=== PATIENT | female | born 1985 | race Caucasian/White ===

== ENCOUNTER 2020-10-13 | Inpatient (IN) | payer BC ==
[~2020-10-13] VITALS: Ht 175.3 cm; Wt 115.2 kg
[2020-10-13] MEDS ORDERED: VITAFOL-OB+DHA1 EACH PO (00:52)
--- NOTE | 2020-10-13 00:54 | NUR ---
SWABBED BOTH NARES FOR RAPID COVID TEST
--- NOTE | 2020-10-13 13:33 | PR ---
[facility] [address] [place], [place] [address] Signed Progress Notes IP Datetime Report Generated by CPN: 10/13/2020 13:33 PROGRESS NOTES: [id number] Impression: Normal Progression of Labor; Reassuring Heart Rate Procedures: Artificial ROM; Sterile Vag Exam Plan: Continue Present Management; Anticipate Vaginal Delivery Other Plans: Start PCN Informed Consent Obtain: Vaginal Delivery VITAL SIGNS: [id number] Vital Signs: Reviewed; Within Normal Limits EXAM: [id number] Dilatation: 3.0 Effacement: 50 Station: -3 Contractions: Rare MEMBRANES: [id number] Comments: Pt seen and examined. Doing well. More uncomfortable w/ contractions. Cx ripe and discussed AROM. AROM performed w/out difficulty. Start PCN prophylaxis. Discussed anticipated course of labor. Epidural on demand. All questions answered. FETUS A: [id number] FHR Baseline: 130 Variability: Moderate 6-25bpm Accelerations: 15X15 Decelerations: None FHR Category: Category I Presentation: Vertex Comments on Fetus A: No evidence of metabolic acidosis FETUS B: [id number] Signing Physician: Angella Pickard DO Copies: ~ *Electronically Signed* 10/13/20 1333 ANGELLA PICKARD DO PATIENT NAME: CANDI SCHAEFER PROGRESS NOTE DATE OF : 83 PHYSICIAN: ANGELLA PICKARD DO RPT #: [id number] REPORT IS CONFIDENTIAL AND NOT TO BE RELEASED WITHOUT AUTHORIZATION
--- NOTE | 2020-10-13 17:36 | PR ---
[facility] [address] [place], [place] [address] Signed Progress Notes IP Datetime Report Generated by CPN: 10/13/2020 17:36 PROGRESS NOTES: [id number] Impression: Reassuring Heart Rate Procedures: Intrauterine Pressure Catheter; Sterile Vag Exam Plan: Augmentation Other Plans: Start PCN Informed Consent Obtain: Vaginal Delivery VITAL SIGNS: [id number] Vital Signs: Reviewed; Within Normal Limits EXAM: [id number] Dilatation: 4.0 Effacement: 50 Station: -3 Contractions: Rare MEMBRANES: [id number] Comments: Pt seen and examined. Contractions very uncomfortable at times. No pelvic pressure. On exam, limited cervical change since AROM. IUPC placed and will start pitocin per protocol. Discussed w/ pt who understands and agrees. All questions answered. FETUS A: [id number] FHR Baseline: 130 Variability: Moderate 6-25bpm Accelerations: 15X15 Decelerations: None FHR Category: Category I Presentation: Vertex Comments on Fetus A: No evidence of metabolic acidosis FETUS B: [id number] Signing Physician: Angella Pickard DO Copies: ~ *Electronically Signed* 10/13/20 7730 ANGELLA PICKARD DO PATIENT NAME: CANDI SCHAEFER PROGRESS NOTE DATE OF : 83 PHYSICIAN: ANGELLA PICKARD DO RPT #: [id number] REPORT IS CONFIDENTIAL AND NOT TO BE RELEASED WITHOUT AUTHORIZATION
--- NOTE | 2020-10-13 19:52 | PR ---
[facility] [address] [facility] [place] [facility] [place], [place] [address] Signed Progress Notes IP Datetime Report Generated by CPN: 10/13/2020 19:52 PROGRESS NOTES: [id number] Impression: Normal Progression of Labor; Reassuring Heart Rate Procedures: Intrauterine Pressure Catheter; Sterile Vag Exam Plan: Continue Present Management Other Plans: Start PCN Informed Consent Obtain: Vaginal Delivery VITAL SIGNS: [id number] Vital Signs: Reviewed; Within Normal Limits EXAM: [id number] Dilatation: 4.0 Effacement: 50 Station: -3 Contractions: Rare MEMBRANES: [id number] Comments: Pt seen and examined. Comfortable w/ epidural. Pitocin per protocol and contractions becoming more regular. Discussed anticipated course of labor. All questions answered. FETUS A: [id number] FHR Baseline: 130 Variability: Moderate 6-25bpm Accelerations: 15X15 Decelerations: None FHR Category: Category I Presentation: Vertex Comments on Fetus A: No evidence of metabolic acidosis FETUS B: [id number] Signing Physician: Angella Pickard DO Copies: ~ *Electronically Signed* 10/13/201951 ANGELLA PICKARD DO PATIENT NAME: CANDI SCHAEFER PROGRESS NOTE DATE OF : 83 PHYSICIAN: ANGELLA PICKARD DO RPT #: [id number] REPORT IS CONFIDENTIAL AND NOT TO BE RELEASED WITHOUT AUTHORIZATION
--- NOTE | 2020-10-14 08:48 | PR ---
[facility] [address] [facility] [place], [place] [address] Signed PP Progress Notes Datetime Report Generated by CPN: 10/14/2020 08:48 SUBJECTIVE: [id number] Pain: Within Normal Limits Nausea/Vomiting: Denies Flatus: Yes Bowel Movement: No Vital Signs: [id number] Vital Signs: Reviewed; Within Normal Limits Cardiovascular: Normal Respiratory: Normal Abdomen/Uterus: Normal Lochia: Normal Vulva/Perineum: Not Done Breasts: Not Done CVA Tenderness: Normal Extremities: Normal Incision: Not Applicable Progress: Normal Exam Comments: Fundus firm U-2 nontender IMPRESSION/PLAN/PROCEDURES: [id number] Impression: Normal Progression Plan: Continue Present Management Progress Notes: Pt seen and examined. Doing well. Ambulating, voiding, and tolerating full diet. Pain and lochia minimal. well. No concerns. Anticipate d/c home tomorrow. All questions answered Signing Physician: Angella Pickard DO Copies: ~ *Electronically Signed* 10/14/20 0848 ANGELLA PICKARD DO PATIENT NAME: CANDI SCHAEFER PROGRESS NOTE DATE OF : 83 PHYSICIAN: ANGELLA PICKARD DO RPT #: [id number] REPORT IS CONFIDENTIAL AND NOT TO BE RELEASED WITHOUT AUTHORIZATION
--- NOTE | 2020-10-15 07:48 | PR ---
[facility] [address] [place], [place] [address] Signed PP Progress Notes Datetime Report Generated by CPN: 10/15/2020 07:48 SUBJECTIVE: [id number] Pain: Within Normal Limits Nausea/Vomiting: Denies Flatus: Yes Bowel Movement: No Vital Signs: [id number] Vital Signs: Reviewed; Within Normal Limits Cardiovascular: Normal Respiratory: Normal Abdomen/Uterus: Normal Lochia: Normal Vulva/Perineum: Not Done Breasts: Not Done CVA Tenderness: Normal Extremities: Normal Incision: Not Applicable Progress: Normal Exam Comments: Fundus firm U-2 nontender IMPRESSION/PLAN/PROCEDURES: [id number] Impression: Normal Progression Plan: Discharge Progress Notes: Pt seen and examined. Doing well. Ambulating, voiding, and tolerating full diet. Pain and lochia minimal. well. Desires d/c home. Reviewed d/c instructions in detail. Unsure of plans for contraception. All questions answered. Signing Physician: Angella Pickard DO Copies: ~ *Electronically Signed* 10/15/20 0748 ANGELLA PICKARD DO PATIENT NAME: CANDI SCHAEFER PROGRESS NOTE DATE OF : 83 PHYSICIAN: ANGELLA PICKARD DO RPT #: [id number] REPORT IS CONFIDENTIAL AND NOT TO BE RELEASED WITHOUT AUTHORIZATION
== END 2020-10-15 12:15 | disposition home or self-care (01) | DRG 807 ==
LOC: FBC
PROVIDERS: ADMIT Obstetrics & Gynecology; ATTEND Obstetrics & Gynecology
PROC: 10907ZC Drainage of Amniotic Fluid, Therapeutic from Products of Conception, Via Natural or Artificial Opening (ICD-10-PCS; 2020-10-13)
PROC: 10H07YZ Insertion of Other Device into Products of Conception, Via Natural or Artificial Opening (ICD-10-PCS; 2020-10-13)
PROC: 3E0P7VZ Introduction of Hormone into Female Reproductive, Via Natural or Artificial Opening (ICD-10-PCS; 2020-10-13)
PROC: 00HU33Z Insertion of Infusion Device into Spinal Canal, Percutaneous Approach (ICD-10-PCS; 2020-10-13)
PROC: 3E0R3BZ Introduction of Anesthetic Agent into Spinal Canal, Percutaneous Approach (ICD-10-PCS; 2020-10-13)
PROC: 10E0XZZ Delivery of Products of Conception, External Approach (ICD-10-PCS; principal; 2020-10-14)
DX: O48.0 Post-term pregnancy (principal); Z37.0 Single live birth; O99.824 Streptococcus B carrier state complicating childbirth; Z3A.41 41 weeks gestation of pregnancy; Z20.822 Contact with and (suspected) exposure to COVID-19; O69.81X0 Labor and delivery complicated by cord around neck, without compression, not applicable or unspecified; O99.214 Obesity complicating childbirth; E66.9 Obesity, unspecified; O99.892 Other specified diseases and conditions complicating childbirth; Q99.2 Fragile X chromosome
CPT/HCPCS: 01960; 36415; 85027; A9270; C9803; J2540; J2590; J2795; J3010; U0003